=== PATIENT | female | born 1960 | race Caucasian/White ===

== ENCOUNTER → 2018-11-18 | Emergency (ER) | payer OTHER ==
[~2018-11-18] VITALS: Ht 172.7 cm; Wt 84.8 kg
[~2018-11-18] MED LIST: ULTRAM50 MG PO
== END ==
LOC: ED 17:22
DX: M54.9 Dorsalgia, unspecified (principal); Z53.21 Procedure and treatment not carried out due to patient leaving prior to being seen by health care provider

== ENCOUNTER 2018-11-19 16:18 | Emergency (ER) | payer OTHER ==
[~2018-11-19] VITALS: Ht 172.7 cm; Wt 84.8 kg
--- OUTSIDE RECORDS SUMMARY | 2018-11-19 16:20 | XMS ---
PreManage Notification: ALFREDO LYONS Security Respiratory Care Specialist Events No recent Security Events currently on file [facility] C[facility] PROVIDERS Beni Sherwood Primary Care Current Veliz PHONE: Unknown Cindi has no Care Guidelines for this patient. E.Deangelo VISIT COUNT (12 MO.) 2 [facility] TOTAL 2 NOTE: Visits indicate total known visits. ED/UCC VISIT TRACKING (12 MO.) 11/19/2018 16:19 [facility] [place] TYPE: Emergency COMPLAINT: - BACK PAIN, NON INJ 11/18/2018 17:23 [facility] [place] TYPE: Emergency COMPLAINT: - BACK PAIN, NON INJ INPATIENT VISIT TRACKING (12 MO.) No inpatient visits to display in this time frame [id number]
[2018-11-19] MEDS ORDERED: ULTRAM50 MG PO (17:10)
== END 2018-11-19 17:30 | disposition home or self-care (01) ==
LOC: ED 16:18
DX: G89.29 Other chronic pain (principal); M54.5 Low back pain; Z85.820 Personal history of malignant melanoma of skin; Z88.6 Allergy status to analgesic agent; Z88.8 Allergy status to other drugs, medicaments and biological substances
CPT/HCPCS: 99283

== ENCOUNTER 2018-11-24 12:29 | Emergency (ER) | payer OTHER ==
[~2018-11-24] VITALS: Ht 172.7 cm; Wt 84.8 kg
--- OUTSIDE RECORDS SUMMARY | 2018-11-24 12:32 | XMS ---
PreManage Notification: ALFREDO LYONS Security Field Account Manager Events No recent Security Events currently on file CRITERIA MET - Group Notification - [facility] - Has Care Guidelines - PDMP - [facility] - 2 Visits in 30 Days CARE PROVIDERS JIN ROSEN NP Nurse Practitioner: Adult Health 11/21/2018-[facility] SCOTT PHONE: Unknown Beni Sherwood Primary [facility] Padilla Veliz PHONE: Unknown Cindi has no Care Guidelines for this patient. Care History Medical/Surgical 11/21/2018 [facility] Care Recommendation: - USE EXTREME CAUTION IN GIVING NARCOTICS TO THIS PATIENT. - Avoid Discharge Narcotic prescriptions if at all possible. Physician discretion. E.D. VISIT COUNT (12 MO.) 3 [facility] TOTAL 3 NOTE: Visits indicate total known visits. ED/UCC VISIT TRACKING (12 MO.) 11/24/2018 12:30 [facility] [place] TYPE: Emergency COMPLAINT: - BACK PAIN 11/19/2018 16:19 [facility] [place] TYPE: Emergency COMPLAINT: - BACK PAIN, NON INJ DIAGNOSES: - Dorsalgia, unspecified - Other chronic pain - Low back pain - Allergy status to analgesic agent status - Personal history of malignant melanoma of skin - Allergy status to other drugs, medicaments and biological substances status 11/18/2018 17:23 [facility] [place] TYPE: Emergency COMPLAINT: - BACK PAIN, NON INJ DIAGNOSES: - Procedure and treatment not carried out due to patient leaving prior to being seen by health care provider - Maydagia, unspecified INPATIENT VISIT TRACKING (12 MO.) No inpatient visits to display in this time frame [id number]
[2018-11-24] MEDS ORDERED: GABAPENTIN600 MG PO (12:49)
[2018-11-24] MEDS ORDERED: FLUOXETINE HCL40 MG PO (12:49)
[2018-11-24] MEDS ORDERED: LORAZEPAM2 MG PO (12:50)
[2018-11-24] MEDS ORDERED: DIPHENOXYLATE-1 EACH PO (12:50)
[2018-11-24] MEDS ORDERED: OXYCODONE-ACET1 EAC3 PO (12:50)
[2018-11-24] MEDS ORDERED: PROMETHAZINE HC25 M1 PO (12:51)
== END 2018-11-24 13:49 | disposition home or self-care (01) ==
LOC: ED 12:29
DX: G89.29 Other chronic pain (principal); M54.9 Dorsalgia, unspecified; Z85.828 Personal history of other malignant neoplasm of skin; Z85.3 Personal history of malignant neoplasm of breast; Z87.891 Personal history of nicotine dependence; Z90.49 Acquired absence of other specified parts of digestive tract; Z90.710 Acquired absence of both cervix and uterus; Z88.6 Allergy status to analgesic agent; Z88.8 Allergy status to other drugs, medicaments and biological substances
CPT/HCPCS: 99283

== ENCOUNTER 2018-12-11 21:57 | Emergency (ER) | payer OTHER ==
[~2018-12-11] VITALS: Ht 167.6 cm; Wt 85.7 kg
[~2018-12-11 21:57] MED LIST changes: +DIPHENOXYLATE-1 EACH PO; +FLUOXETINE HCL40 MG PO; +GABAPENTIN600 MG PO; +LORAZEPAM2 MG PO; +OXYCODONE-ACET1 EAC3 PO; +PROMETHAZINE HC25 M1 PO
--- OUTSIDE RECORDS SUMMARY | 2018-12-11 22:00 | XMS ---
PreManage Notification: ALFREDO LYONS Security Group Practice Pediatrician Events No recent Security Events currently on file CRITERIA MET - Group Notification - [facility] - Has Care Guidelines - PDMP - [facility] - 2 Visits in 30 Days CARE PROVIDERS JIN ROSNE NP Nurse Practitioner: Adult Health 11/21/2018-[facility] SCOTT PHONE: Unknown Beni Sherwood Primary [facility] Padilla Veliz PHONE: Unknown Cindi has no Care Guidelines for this patient. Care History Medical/Surgical 11/21/2018 [facility] Care Recommendation: - USE EXTREME CAUTION IN GIVING NARCOTICS TO THIS PATIENT. - Avoid Discharge Narcotic prescriptions if at all possible. Physician discretion. E.D. VISIT COUNT (12 MO.) 4 [facility] TOTAL 4 NOTE: Visits indicate total known visits. ED/UCC VISIT TRACKING (12 MO.) 12/11/2018 21:57 [facility] [place] TYPE: Emergency COMPLAINT: - BACK PAIN 11/24/2018 12:30 [facility] [place] TYPE: Emergency COMPLAINT: - BACK PAIN, NO INJURY DIAGNOSES: - Acquired absence of both cervix and uterus - Personal history of other malignant neoplasm of skin - Personal history of malignant neoplasm of breast - Allergy status to other drugs, medicaments and biological substances status - Personal history of nicotine dependence - Dorsalgia, unspecified - Acquired absence of other specified parts of digestive tract - Allergy status to analgesic agent status - Other chronic pain 11/19/2018 16:19 [facility] [place] TYPE: Emergency [...] being seen by health care provider - Dorsalgia, unspecified INPATIENT VISIT TRACKING (12 MO.) No inpatient visits to display in this time frame [id number]
== END 2018-12-11 22:49 | disposition left against medical advice (07) ==
LOC: ED 21:57
DX: M54.5 Low back pain (principal); Z85.828 Personal history of other malignant neoplasm of skin; Z85.3 Personal history of malignant neoplasm of breast; Z87.891 Personal history of nicotine dependence; Z88.6 Allergy status to analgesic agent; Z88.8 Allergy status to other drugs, medicaments and biological substances
CPT/HCPCS: 99283

== ENCOUNTER 2019-06-18 16:37 | Emergency (ER) | payer OTHER ==
[~2019-06-18] VITALS: Ht 167.6 cm; Wt 90.7 kg
--- OUTSIDE RECORDS SUMMARY | 2019-06-18 16:40 | XMS ---
PreManage Notification: ALFREDO LYONS Security Fire Management Technician Events 1 event(s) in the past 18 months Most recent security events: Elopement at [facility] 12/11/2018 21:57 - Other Details: PATIENT LEFT AMA. CRITERIA MET - Group Notification - [facility] - Has Care Guidelines - PDMP - [facility] - 2 Visits in 30 Days CARE PROVIDERS JIN ROSEN Nurse Practitioner: Adult Health 11/21/2018-Current PHONE: Unknown JIN ROSEN Primary Care Current PHONE: Unknown LUCIANA TOLENTINO Primary [facility] PHONE: Unknown Beni Sherwood Primary [facility] PHONE: Unknown Cindi has no Care Guidelines for this patient. Care History Medical/Surgical 12/12/2018 [facility] CASE MANAGEMENT REFERRAL MADE- PATIENT HAS [facility] AND NO PCP. 11/21/2018 [facility] Care Recommendation: - USE EXTREME CAUTION IN GIVING NARCOTICS TO THIS PATIENT. - Avoid Discharge Narcotic prescriptions if at all possible. Physician discretion. [facility]12 MO[facility] TOTAL 8 NOTE: Visits indicate total known visits. ED/UCC VISIT TRACKING (12 MO.) 06/18/2019 16:37 [facility] [place] TYPE: Emergency COMPLAINT: - FALL, KNEE PAIN 06/14/2019 15:46 [facility] [place] TYPE: Emergency DIAGNOSES: - R LEG PAIN AND SWELLING - Effusion, right knee - Pain in right knee 05/03/2019 13:05 [facility] [place] TYPE: Emergency DIAGNOSES: - RIGHT LEG PAIN - Strain of other muscle(s) and tendon(s) at lower leg level, r 12/23/2018 14:35 [facility] [place] TYPE: Emergency DIAGNOSES: - Fracture of tooth (traumatic), initial encounter for open fra - BROKEN TOOTH 12/11/2018 21:57 [facility] [place] TYPE: Emergency COMPLAINT: - BACK PAIN DIAGNOSES: - Personal history of nicotine dependence - Personal history of other malignant neoplasm of skin - Allergy status to other drugs, medicaments and biological sub - Low back pain - Personal history of malignant neoplasm of breast - Allergy status to analgesic agent status 11/24/2018 12:30 [facility] [place] TYPE: Emergency COMPLAINT: - BACK PAIN, NO INJURY DIAGNOSES: - Acquired absence of both cervix and uterus - Other specified disorders of bone, unspecified site - Personal history of other malignant neoplasm of skin - Personal history of malignant neoplasm of breast - Allergy status to other drugs, medicaments and biological sub - Personal history of nicotine dependence - [...] status to other drugs, medicaments and biological sub 11/18/2018 17:23 [facility] [place] TYPE: Emergency COMPLAINT: - BACK PAIN, NON INJ DIAGNOSES: - Procedure and treatment not carried out due to patient leavin - Dorsalgia, unspecified INPATIENT VISIT TRACKING (12 MO.) No inpatient visits to display in this time frame [id number]
== END 2019-06-18 18:30 | disposition home or self-care (01) ==
LOC: ED 16:37
DX: S80.01XA Contusion of right knee, initial encounter (principal); G89.29 Other chronic pain; M25.561 Pain in right knee; Z87.891 Personal history of nicotine dependence; Z79.899 Other long term (current) drug therapy; W18.30XA Fall on same level, unspecified, initial encounter
CPT/HCPCS: 73560; 99283-25